=== PATIENT | male | born 1990 | race Caucasian/White ===

== ENCOUNTER 2020-06-11 12:21 | Emergency (ER) | payer BC ==
--- NOTE | 2020-06-11 12:52 | EDM.PDOC ---
ED HPI GENERAL MEDICAL PROBLEM - General Chief Complaint: Skin Complaint Stated Complaint: RASH ON LT ANKLE Time Seen by Provider: 06/11/20 12:35 - History of Present Illness INITIAL COMMENTS - FREE TEXT/NARRATIVE: History of present illness: Patient presents with an itchy rash on his right ankle is been present for about a week it has gotten a little bit worse spread a little bit and there are blisters that are now popping and its becoming crusted. No fever no chills no known exposures he was out fishing approximately May 30 when this began. He has not noticed being around [employer]. No new products or substances no difficulty breathing no trouble swallowing no other medical problems no other complaints nothing makes it better or worse she tried some antifungal cream at home and this did not help Review of systems: As per history of present illness and below otherwise all systems reviewed and negative. Past medical history: As per history of present illness and as reviewed below otherwise noncontributor y. Surgical history: As per history of present illness and as reviewed below otherwise noncontributory. Social history: No reported history of drug or alcohol abuse. Family history: As per history of present illness and as reviewed below otherwise noncontributory. Physical exam: HEENT: Atraumatic, normocephalic, pupils reactive, negative for conjunctival pallor or scleral icterus, mucous membranes moist, throat clear, neck supple, nontender, trachea midline. Lungs: Clear to auscultation, breath sounds equal bilaterally, chest nontender. Heart: S1S2, regular, negative for clicks, rubs, or JVD. Abdomen: Soft, nondistended, nontender. Negative for masses or hepatosplenomegaly. Negative for costovertebral tenderness. Pelvis: Stable nontender. Genitourinary: Deferred. Rectal: Deferred. Extremities: Atraumatic, negative for cords or calf pain. Neurovascular unremarkable. Neuro: Awake, alert, oriented. Cranial nerves II through XII unremarkable. Cerebellum unremarkable. Motor and sensory unremarkable throughout. Exam nonfocal. Skin: There is a patch approximately 3 x 4 cm on the right anterior ankle consistent with a contact dermatitis with some confluent maculopapular blisters some that are ruptured excoriated and crusted over. This does not appear to be an infection it does not appear to be fungal it did not fluoresce under [place] lamp Diagnostics: [] Therapeutics: [] Impression: Contact dermatitis [] Plan: Wash clothing associated with any exposures to poison kaveh or oak wash the lesion with soap and water every day Benadryl for itch and hydrocortisone cream for comfort. Patient understands that should scab over and go away within a couple weeks also up with primary care [] Definitive disposition and diagnosis as appropriate pending reevaluation and review of above. Left Feet Pain Score (Numeric/FACES): 1 - Related Data Allergies Allergy/AdvReac Type Severity Reaction Status Date / Time No Known Allergies Allergy Verified 06/11/20 12:35 Home Meds: Home Meds . [No Known Home Meds] 06/11/20 [History] Past Medical History - Past Health History Medical/Surgical History: Denies Medical/Surgical History - Infectious Disease History Infectious Disease History: Reports: None Social & Family History - Family History Family Medical History: Noncontributory - Tobacco Use Smoking Status *Q: Never Smoker - Caffeine Use Caffeine Use: Reports: None - Recreational Drug Use Recreational Drug Use: No ED ROS GENERAL - Review of Systems Review Of Systems: See Below ED EXAM, SKIN/RASH Exam: See Below Course - Vital Signs Text/Narrative:: Instructions were given on how to handle late contact dermatitis. Last Recorded V/S: Last Vital Signs Temp 36.1 C 06/11/20 12:35 Pulse 63 06/11/20 12:35 Resp 15 06/11/20 12:35 BP 113/63 06/11/20 12:35 Pulse Ox 98 06/11/20 12:35 Departure - Departure Time of Disposition: 12:51 Disposition: Home, Self-Care 01 Condition: Good Clinical Impression: Contact dermatitis - Discharge Information *PRESCRIPTION DRUG MONITORING PROGRAM REVIEWED*: Not Applicable *COPY OF PRESCRIPTION DRUG MONITORING REPORT IN PATIENT [place]: Not Applicable Instructions: Contact Dermatitis, [id number] Referrals: Tamanna Rodriges DO [Primary Care Provider] - Additional Instructions: The following information is given to patients seen in the emergency department who are being discharged to home. This information is to outline your options for follow-up care. We provide all patients seen in our emergency department with a follow-up referral. The need for follow-up, as well as the timing and circumstances, are variable depending upon the specifics of your emergency department visit. If you don't have a primary care physician on staff, we will provide you with a referral. We always advise you to contact your personal physician following an emergency department visit to inform them of the circumstance of the visit and for follow-up with them and/or the need for any referrals to a consulting specialist. The emergency department will also refer you to a specialist when appropriate. This referral assures that you have the opportunity for follow-up care with a specialist. All of these measure are taken in an effort to provide you with optimal care, which includes your follow-up. Under all circumstances we always encourage you to contact your private physician who remains a resource for coordinating your care. When calling for follow-up care, please make the office aware that this follow-up is from your recent emergency room visit. If for any reason you are refused follow-up, please contact the [facility] Emergency Department at and asked to speak to the emergency department charge nurse. [facility] - Primary Care [address] [place] [address] [id number] [address] [address] Sepsis Event Note (ED) - Evaluation Sepsis Screening Result: No Definite Risk - Focused Exam Vital Signs: Vital Signs Temp Pulse Resp BP Pulse Ox 06/11/20 12:35 36.1 C 63 15 113/63 98
== END 2020-06-11 13:09 | disposition home or self-care (01) ==
LOC: MW.ED 12:21
DX: L25.9 Unspecified contact dermatitis, unspecified cause (principal)
CPT/HCPCS: 99282